=== PATIENT | female | born 1990 ===

== ENCOUNTER 2019-04-20 12:34 | Inpatient (IN) ==
[2019-04-20] MEDS ORDERED: MEPERIDINE 50 MG/1 ML VIAL IV PRN (12:55)
[2019-04-20] MEDS ORDERED: BUTORPHANOL 2 MG/ML VIAL IV PRN (12:55)
[2019-04-20] MEDS ORDERED: ONDANSETRON 4 MG/2 ML VIAL IV PRN (12:55)
[2019-04-20] MEDS ORDERED: DINOPROSTONE VAG GEL 10 MG SYRINGE VAG ONE (13:00)
[2019-04-20] MEDS ORDERED: LACTATED RINGERS 1,000 ML IV SCH (13:00)
[2019-04-20] MEDS ORDERED: OXYTOCIN/LR 20 UNIT/1,000 ML BAG IV SCH (13:00)
[2019-04-20 13:27] LABS: Basophils % 0.6 % (0.0-0.8); Eosinophils # 0.1 10*3/uL (0.0-0.87); Eosinophils % 0.7 % (0.00-10.9); Hematocrit 36.6 VOL% (35.7-47.0); Hemoglobin 11.6 GM/DL (12.0-16.0); Immature Granulocytes % 0.8 %; Immature Granulocytes Absolute 0.06 #; Lymphocytes # 1.9 10*3/uL (1.4-4.0); Lymphocytes % 26.4 % (21.3-54.2); Mean Corpuscular HGB Conc 31.7 GM/DL (32-36); Mean Corpuscular Volume 88.8 FL (87-102); Monocytes % 7.5 % (1.7-12.7); Platelet Count 219 T/CUMM (130-400); Red Blood Count 4.12 MC/CUMM (3.8-5.5); Red Cell Distribution Width 14.5 % (9.3-17.3); White Blood Count 7.2 T/CUMM (4-12)
[2019-04-20 14:03] LABS: Alanine Aminotransferase 11 U/L (13-56); Albumin 2.3 G/DL (3.4-5.0); Alkaline Phosphatase 282 U/L (45-117); Aspartate Amino Transferase 16 U/L (0-37); Bilirubin,Total < 0.39 MG/DL (0.2-1.0); Blood Urea Nitrogen 8 MG/DL (7-18); Calcium 8.6 MG/DL (8.5-10.1); Estimated Glom Filtration Rate 132 ML/MIN; Glucose 78 MG/DL (74-106); Osmolality,Calculated 273.5 MOS/KG (273-304); Total Protein 6.2 G/DL (6.4-8.3)
[2019-04-20 15:55] LABS: Barbiturates Screen,Urine Negative (Negative); Benzodiazepines Screen,Urine Negative (Negative); Cannabinoid Screen,Urine Negative (Negative); Opiate Screen,Urine Negative (Negative); Phencyclidine Screen,Urine Negative (Negative)
[2019-04-21] MEDS ORDERED: OXYTOCIN/LR 20 UNIT/1,000 ML BAG IV SCH (05:00)
[2019-04-21] MEDS ORDERED: LACTATED RINGERS 1,000 ML IV ONE (08:27)
[2019-04-21] MEDS ORDERED: CITRIC ACID/SODIUM CITRATE 30 ML UDCUP PO ONE (08:27)
[2019-04-21] MEDS ORDERED: FAMOTIDINE 20 MG/2 ML VIAL IV ONE (08:27)
[2019-04-21] MEDS ORDERED: diphenhydrAMINE 50 MG/1 ML VIAL IV PRN ×2 (08:28)
[2019-04-21] MEDS ORDERED: LACTATED RINGERS 250 ML IV PRN (08:28)
[2019-04-21] MEDS ORDERED: hydrOXYzine HCL 25 MG/1 ML VIAL IM PRN (08:28)
[2019-04-21] MEDS ORDERED: NALOXONE 0.4 MG/ML VIAL IV PRN (08:28)
[2019-04-21] MEDS ORDERED: PROMETHAZINE 25 MG/1 ML VIAL IM ONE (08:28)
[2019-04-21] MEDS ORDERED: fentaNYL 2 MCG/ROPIV 0.2% EPID 100 ML EPIDURAL SCH (08:30)
[2019-04-21] MEDS ORDERED: ceFAZolin 2,000 MG in PREMIX 1 EACH IV ONE (15:00)
[2019-04-21 15:07] LABS: Apearance,Urine CLEAR (Clear); Bilirubin,Urine Negative (Negative); Blood, Urine Negative (Negative); Glucose,Urine (UA) Negative (Negative); Ketones,Urine 5 mg/dL (Negative); Mucus,Urine Occasional /LPF (Occasional); Nitrite,Urine Negative (Negative); Protein,Urine Negative; RBC,Urine <1 /HPF (0-4); Squamous Epithelial Cell,Urine Occasional /HPF (0-10); Urine Color Yellow (Yellow); Urine Specific Gravity 1.016 (1.001-1.035); Urine Urobilinogen < 2.0 EU/DL (0.2-1.0); WBC,Urine 4 /HPF (0-6)
[2019-04-21] MEDS ORDERED: TERBUTALINE 1 MG/1 ML VIAL SUBCUT PRN (15:17)
[2019-04-21] MEDS ORDERED: TERBUTALINE 1 MG/1 ML VIAL ONE (15:18)
[2019-04-21] MEDS ORDERED: OXYTOCIN 10 UNIT/ML VIAL ONE ×3 (15:24→15:29)
[2019-04-21] MEDS ORDERED: OXYTOCIN/LR 30 UNIT/1,000 ML BAG IV ONE (15:26)
[2019-04-21 16:16] LABS: Cord Arterial Blood HCO3 17.8 MMOL/L
[2019-04-21 16:19] LABS: Cord Venous Blood HCO3 19.3 MMOL/L; Cord Venous Blood PCO2 58.3 MMHG
[2019-04-21] MEDS ORDERED: LIDOCAINE MPF 2% /EPI 20 ML VIAL ONE (16:20)
[2019-04-21] MEDS ORDERED: MAGNESIUM HYDROXIDE SUSP 30 ML UDCUP PO PRN (16:23)
[2019-04-21] MEDS ORDERED: ONDANSETRON 4 MG/2 ML VIAL IV PRN (16:23)
[2019-04-21] MEDS ORDERED: OXYTOCIN/LR 20 UNIT/1,000 ML BAG IV ONE (16:23)
[2019-04-21] MEDS ORDERED: ACETAMINOPHEN 325 MG TABLET PO PRN (16:23)
[2019-04-21] MEDS ORDERED: RHO(D) IMMUNE GLOBULIN 300 MCG SYRINGE IM ONE (16:23)
[2019-04-21 16:24] LABS: Cord Venous Blood PO2 12.9
[2019-04-21] MEDS: ePHEDrine 50 MG/ML AMP IV PRN ×3 (16:43→17:09)
[2019-04-21] MEDS: LACTATED RINGERS 1,000 ML IV SCH (20:23)
[2019-04-21] MEDS: IBUPROFEN 800 MG TABLET PO PRN (20:29)
[2019-04-21] MEDS ORDERED: KETOROLAC 30 MG/1 ML VIAL IV PRN (22:21)
[2019-04-21] MEDS: DOCUSATE SODIUM 100 MG CAPSULE PO SCH (22:25)
[2019-04-21] MEDS: ONDANSETRON 4 MG/2 ML VIAL IV PRN (22:40)
[2019-04-21] MEDS: HYDROmorphone 2 MG/1 ML VIAL IV PRN (22:43)
[2019-04-22 01:06] LABS: Basophils % 0.3 % (0.0-0.8); Eosinophils % 0.1 % (0.00-10.9); Hematocrit 28.5 VOL% (35.7-47.0); Hemoglobin 9.3 GM/DL (12.0-16.0); Immature Granulocytes % 0.4 %; Immature Granulocytes Absolute 0.05 #; Lymphocytes # 1.5 10*3/uL (1.4-4.0); Lymphocytes % 12.7 % (21.3-54.2); Mean Corpuscular HGB Conc 32.6 GM/DL (32-36); Mean Corpuscular Volume 86.9 FL (87-102); Mean Platelet Volume 10.2 FL (9.6-12.0); Monocytes % 5.4 % (1.7-12.7); Neutrophils % 81.1 % (38.7-73.9); Platelet Count 163 T/CUMM (130-400); Red Blood Count 3.28 MC/CUMM (3.8-5.5); Red Cell Distribution Width 14.3 % (9.3-17.3); White Blood Count 11.6 T/CUMM (4-12)
[2019-04-22] MEDS: LACTATED RINGERS 1,000 ML IV SCH (04:09)
[2019-04-22] MEDS ORDERED: oxyCODONE/ACETAMINOPHEN 5-325 MG TABLET PO PRN (05:13)
[2019-04-22] MEDS: ONDANSETRON 4 MG/2 ML VIAL IV PRN (05:24)
[2019-04-22] MEDS: HYDROmorphone 2 MG/1 ML VIAL IV PRN (05:27)
[2019-04-22 08:49] LABS: Basophils % 0.3 % (0.0-0.8); Eosinophils % 0.4 % (0.00-10.9); Hematocrit 29.2 VOL% (35.7-47.0); Hemoglobin 9.4 GM/DL (12.0-16.0); Immature Granulocytes % 0.5 %; Immature Granulocytes Absolute 0.05 #; Lymphocytes # 1.7 10*3/uL (1.4-4.0); Lymphocytes % 17.9 % (21.3-54.2); Mean Corpuscular HGB Conc 32.2 GM/DL (32-36); Mean Corpuscular Volume 88.5 FL (87-102); Mean Platelet Volume 10.9 FL (9.6-12.0); Monocytes % 7.4 % (1.7-12.7); Neutrophils % 73.5 % (38.7-73.9); Platelet Count 168 T/CUMM (130-400); Red Cell Distribution Width 14.4 % (9.3-17.3); White Blood Count 9.6 T/CUMM (4-12)
[2019-04-22] MEDS: METOCLOPRAMIDE 10 MG TABLET PO SCH ×2 (09:06→17:33)
[2019-04-22] MEDS: MULTIVITAMIN (PRENATAL) TABLET PO SCH (09:06)
[2019-04-22] MEDS: SIMETHICONE CHEW 80 MG TABLET PO PRN ×2 (09:06→20:48)
[2019-04-22] MEDS: MAGNESIUM HYDROXIDE SUSP 30 ML UDCUP PO SCH ×2 (09:06→20:48)
[2019-04-22] MEDS: DOCUSATE SODIUM 100 MG CAPSULE PO SCH ×2 (09:07→20:48)
[2019-04-22] MEDS: IBUPROFEN 800 MG TABLET PO PRN ×2 (11:25→20:48)
[2019-04-22] MEDS: oxyCODONE/ACETAMINOPHEN 5-325 MG TABLET PO PRN ×2 (11:27→17:32)
[2019-04-23] MEDS: METOCLOPRAMIDE 10 MG TABLET PO SCH ×3 (00:10→16:33)
[2019-04-23] MEDS: oxyCODONE/ACETAMINOPHEN 5-325 MG TABLET PO PRN ×3 (03:45→16:29)
[2019-04-23] MEDS: SIMETHICONE CHEW 80 MG TABLET PO PRN (09:34)
[2019-04-23] MEDS: DOCUSATE SODIUM 100 MG CAPSULE PO SCH (09:34)
[2019-04-23] MEDS: MULTIVITAMIN (PRENATAL) TABLET PO SCH (09:34)
[2019-04-23] MEDS: MAGNESIUM HYDROXIDE SUSP 30 ML UDCUP PO SCH (09:34)
[2019-04-23] MEDS: IBUPROFEN 800 MG TABLET PO PRN (10:26)
[2019-04-23 11:30] VITALS: BP 132/81
== END 2019-04-23 17:30 | disposition home or self-care (01) | DRG 540 ==
LOC: N.LDOUT 12:34 → N.LD 12:38 → N.OB 04-21 21:57
PROVIDERS: ADMIT Obstetrics & Gynecology; ATTEND Obstetrics & Gynecology
PROC: LDCSECT (ICD-10-PCS; 2019-04-21 14:00)

== ENCOUNTER 2020-08-13 09:38 | Inpatient (IN) ==
[2020-08-13] MEDS ORDERED: ceFAZolin 3,000 MG in SYRINGE 1 EACH IV ONE (10:15)
[2020-08-13] MEDS ORDERED: CITRIC ACID/SODIUM CITRATE 30 ML UDCUP PO ONE ×2 (10:15→15:44)
[2020-08-13] MEDS ORDERED: FAMOTIDINE 20 MG/2 ML VIAL IV ONE ×2 (10:15→15:44)
[2020-08-13] MEDS ORDERED: OXYTOCIN 10 UNIT/ML VIAL IM ONE (10:17)
[2020-08-13] MEDS ORDERED: OXYTOCIN/LR 30 UNIT/1,000 ML BAG IV ONE (10:17)
[2020-08-13] MEDS: LACTATED RINGERS 1,000 ML IV SCH ×2 (10:34→14:13)
[2020-08-13 10:35] LABS: Basophils % 0.4 % (0.0-0.8); Eosinophils # 0.1 10*3/uL (0.0-0.87); Hematocrit 32.6 VOL% (35.7-47.0); Hemoglobin 10.1 GM/DL (12.0-16.0); Immature Granulocytes % 1.4 %; Lymphocytes # 1.4 10*3/uL (1.4-4.0); Lymphocytes % 18.8 % (21.3-54.2); Mean Corpuscular Volume 84.5 FL (87-102); Monocytes % 7.6 % (1.7-12.7); Neutrophils % 70.8 % (38.7-73.9); Platelet Count 176 T/CUMM (130-400); Red Blood Count 3.86 MC/CUMM (3.8-5.5); Red Cell Distribution Width 16.2 % (9.3-17.3); White Blood Count 7.4 T/CUMM (4-12)
[2020-08-13 10:52] LABS: Alanine Aminotransferase 9 U/L (13-56); Albumin 2.1 G/DL (3.4-5.0); Alkaline Phosphatase 212 U/L (45-117); Aspartate Amino Transferase 13 U/L (0-37); Bilirubin,Total < 0.39 MG/DL (0.2-1.0); Blood Urea Nitrogen 7 MG/DL (7-18); Carbon Dioxide 24 MMOL/L (21-32); Estimated Glom Filtration Rate 154 ML/MIN; Glucose 71 MG/DL (74-106); Osmolality,Calculated 274.4 MOS/KG (273-304); Potassium 3.9 MMOL/L (3.5-5.1); Sodium 140 MMOL/L (136-145); Total Protein 5.9 G/DL (6.4-8.2)
[2020-08-13] MEDS ORDERED: BUPIVACAINE SPINAL 0.75% 2 ML AMP SPINAL ONE (13:10)
[2020-08-13] MEDS ORDERED: MORPHINE 10 MG/10 ML VIAL ONE (13:10)
[2020-08-13] MEDS ORDERED: METOCLOPRAMIDE 10 MG/2 ML VIAL ONE (13:10)
[2020-08-13] MEDS ORDERED: ONDANSETRON 4 MG/2 ML VIAL ONE (13:10)
[2020-08-13] MEDS ORDERED: CARBOPROST TROMETHAMINE 250 MCG/ML AMP IM ONE (13:37)
[2020-08-13] MEDS ORDERED: TRANEXAMIC ACID 1,000 MG/10 ML VIAL ONE (13:37)
[2020-08-13] MEDS ORDERED: METHYLERGONOVINE 0.2 MG/1 ML AMP ONE (13:37)
[2020-08-13] MEDS ORDERED: OXYTOCIN/LR 20 UNIT/1,000 ML BAG IV ONE ×2 (13:37→17:00)
[2020-08-13] MEDS ORDERED: miSOPROStoL 200 MCG TABLET ONE (13:37)
[2020-08-13] MEDS ORDERED: SODIUM CHLORIDE 0.9% 0 ML IV ONE (13:38)
[2020-08-13] MEDS ORDERED: MIDAZOLAM 2 MG/2 ML VIAL ONE (14:24)
[2020-08-13] MEDS ORDERED: SODIUM CHLORIDE 0.9% 1,000 ML IV ONE (14:57)
[2020-08-13] MEDS ORDERED: DEXAMETHASONE 4 MG/1 ML VIAL ONE (15:26)
[2020-08-13 15:30] LABS: Cord Arterial Blood HCO3 19.3 MMOL/L
[2020-08-13 15:33] LABS: Cord Venous Blood HCO3 21.3 MMOL/L; Cord Venous Blood PCO2 47.2 MMHG; Cord Venous Blood PO2 24.5
[2020-08-13] MEDS ORDERED: BUPIVACAINE MPF 0.5% /EPI 30 ML VIAL ONE (15:39)
[2020-08-13] MEDS ORDERED: NALOXONE 0.4 MG/ML VIAL IV PRN (15:44)
[2020-08-13] MEDS ORDERED: diphenhydrAMINE 50 MG/1 ML VIAL IV PRN ×2 (15:44)
[2020-08-13] MEDS ORDERED: LACTATED RINGERS 1,000 ML IV ONE (15:44)
[2020-08-13] MEDS ORDERED: fentaNYL 2 MCG/ROPIV 0.2% EPID 100 ML EPIDURAL SCH (16:00)
[2020-08-13 16:52] LABS: Bacteria,Urine Occasional /HPF (Few); Bilirubin,Urine Negative (Negative); Blood, Urine Small mg/dL (Negative); Glucose,Urine (UA) Negative (Negative); Ketones,Urine Negative (Negative); Mucus,Urine Occasional /LPF (Occasional); Nitrite,Urine Negative (Negative); Protein,Urine 30 MG/DL; RBC,Urine 11 /HPF (0-4); Squamous Epithelial Cell,Urine Occasional /HPF (0-10); Urine Appearance CLEAR (Clear); Urine Color Yellow (Yellow); Urine Specific Gravity 1.027 (1.001-1.035); Urine Urobilinogen < 2.0 EU/DL (0.2-1.0); WBC,Urine 3 /HPF (0-6)
[2020-08-13] MEDS ORDERED: ONDANSETRON 4 MG/2 ML VIAL IV PRN (16:56)
[2020-08-13] MEDS ORDERED: SIMETHICONE CHEW 80 MG TABLET PO PRN (16:56)
[2020-08-13] MEDS ORDERED: ACETAMINOPHEN 325 MG TABLET PO PRN (16:56)
[2020-08-13 17:03] LABS: Barbiturates Screen,Urine Negative (Negative); Benzodiazepines Screen,Urine Positive (Negative); Cannabinoid Screen,Urine Negative (Negative); Opiate Screen,Urine Positive (Negative); Phencyclidine Screen,Urine Negative (Negative)
[2020-08-13] MEDS ORDERED: LACTATED RINGERS 1,000 ML IV SCH (18:00)
[2020-08-13] MEDS ORDERED: RHO(D) IMMUNE GLOBULIN 300 MCG SYRINGE IM ONE (18:00)
[2020-08-13] MEDS ORDERED: ceFAZolin 1,000 MG in SYRINGE 1 EACH IV SCH (18:00)
[2020-08-13 22:25] LABS: Basophils % 0.2 % (0.0-0.8); Hematocrit 30.2 VOL% (35.7-47.0); Hemoglobin 9.7 GM/DL (12.0-16.0); Immature Granulocytes % 0.8 %; Immature Granulocytes Absolute 0.09 #; Lymphocytes # 0.7 10*3/uL (1.4-4.0); Lymphocytes % 5.7 % (21.3-54.2); Mean Corpuscular HGB Conc 32.1 GM/DL (32-36); Mean Corpuscular Volume 82.1 FL (87-102); Mean Platelet Volume 10.9 FL (9.6-12.0); Monocytes % 3.4 % (1.7-12.7); Neutrophils % 89.9 % (38.7-73.9); Platelet Count 165 T/CUMM (130-400); Red Blood Count 3.68 MC/CUMM (3.8-5.5); Red Cell Distribution Width 15.8 % (9.3-17.3)
[2020-08-13] MEDS: ceFAZolin 2,000 MG in PREMIX 1 EACH IV SCH (22:28)
[2020-08-13] MEDS: DOCUSATE SODIUM 100 MG CAPSULE PO SCH (22:29)
[2020-08-13] MEDS: FERROUS SULFATE 325 MG TABLET PO SCH (22:29)
[2020-08-14] MEDS ORDERED: TISSUE ADHESIVE 1 EACH APPLICATOR TOP ONE (05:03)
[2020-08-14] MEDS: ceFAZolin 2,000 MG in PREMIX 1 EACH IV SCH (06:05)
[2020-08-14 06:21] LABS: Basophils % 0.3 % (0.0-0.8); Eosinophils % 0.1 % (0.00-10.9); Hematocrit 29.8 VOL% (35.7-47.0); Hemoglobin 9.3 GM/DL (12.0-16.0); Immature Granulocytes % 0.9 %; Lymphocytes # 1.4 10*3/uL (1.4-4.0); Lymphocytes % 11.6 % (21.3-54.2); Mean Corpuscular HGB Conc 31.2 GM/DL (32-36); Mean Corpuscular Volume 84.2 FL (87-102); Mean Platelet Volume 11.5 FL (9.6-12.0); Monocytes % 7.5 % (1.7-12.7); Neutrophils % 79.6 % (38.7-73.9); Platelet Count 190 T/CUMM (130-400); Red Blood Count 3.54 MC/CUMM (3.8-5.5); Red Cell Distribution Width 15.7 % (9.3-17.3); White Blood Count 11.7 T/CUMM (4-12)
[2020-08-14] MEDS: MAGNESIUM HYDROXIDE SUSP 30 ML UDCUP PO PRN ×2 (09:28→20:21)
[2020-08-14] MEDS: DOCUSATE SODIUM 100 MG CAPSULE PO SCH ×2 (09:28→20:21)
[2020-08-14] MEDS: MULTIVITAMIN (PRENATAL) TABLET PO SCH (09:28)
[2020-08-14] MEDS: IBUPROFEN 800 MG TABLET PO PRN ×2 (09:28→20:21)
[2020-08-14] MEDS: FERROUS SULFATE 325 MG TABLET PO SCH ×2 (09:31→20:21)
[2020-08-15] MEDS: IBUPROFEN 800 MG TABLET PO PRN (03:12)
[2020-08-15 07:20] VITALS: BP 130/71
[2020-08-15] MEDS: DOCUSATE SODIUM 100 MG CAPSULE PO SCH ×2 (07:50→10:14)
[2020-08-15] MEDS: FERROUS SULFATE 325 MG TABLET PO SCH ×2 (07:50→10:14)
[2020-08-15] MEDS: MULTIVITAMIN (PRENATAL) TABLET PO SCH ×2 (07:51→10:14)
== END 2020-08-15 12:00 | disposition home or self-care (01) | DRG 540 ==
LOC: N.LD 09:38 → N.OB 18:08
PROVIDERS: ADMIT Obstetrics & Gynecology; ATTEND Obstetrics & Gynecology
PROC: LDCSECT (ICD-10-PCS; 2020-08-13 14:30)

== ENCOUNTER 2021-12-28 23:36 | Inpatient (IN) ==
[2021-12-29 00:27] LABS: Mucus,Urine Occasional /LPF (Occasional); RBC,Urine 6 /HPF (0-4); Squamous Epithelial Cell,Urine Occasional /HPF (0-10)
[2021-12-29 00:28] LABS: Bilirubin,Urine Negative (Negative); Blood, Urine Trace mg/dL (Negative); Glucose,Urine (UA) Negative (Negative); Ketones,Urine Negative (Negative); Nitrite,Urine Negative (Negative); Protein,Urine Trace mg/dL (Negative); Urine Appearance Clear (Clear); Urine Color Yellow (Yellow); Urine pH 6.5 (4.5-8.0)
[2021-12-29 00:38] LABS: Barbiturates Screen,Urine Negative (Negative); Benzodiazepines Screen,Urine Negative (Negative); Cannabinoid Screen,Urine Negative (Negative); Opiate Screen,Urine Negative (Negative); Phencyclidine Screen,Urine Negative (Negative)
[2021-12-29] MEDS ORDERED: LACTATED RINGERS 1,000 ML IV ONE (00:45)
[2021-12-29 00:49] LABS: Basophils % 0.3 % (0.0-0.8); Eosinophils # 0.1 10*3/uL (0.0-0.87); Eosinophils % 1.6 % (0.00-10.9); Hematocrit 29.7 VOL% (35.7-47.0); Immature Granulocytes % 0.8 %; Immature Granulocytes Absolute 0.05 #; Lymphocytes # 1.5 10*3/uL (1.4-4.0); Lymphocytes % 22.7 % (21.3-54.2); Mean Corpuscular HGB Conc 30.3 GM/DL (32-36); Mean Corpuscular Volume 78.6 FL (87-102); Mean Platelet Volume 10.2 FL (9.6-12.0); Monocytes # 0.4 10*3/uL (0.11-0.8); Monocytes % 6.3 % (1.7-12.7); Neutrophils % 68.3 % (38.7-73.9); Platelet Count 219 T/CUMM (130-400); Red Blood Count 3.78 MC/CUMM (3.8-5.5); Red Cell Distribution Width 16.3 % (9.3-17.3); White Blood Count 6.4 T/CUMM (4-12)
[2021-12-29 02:28] LABS: HIV Antigen/Antibody Result Nonreactive (Nonreactive); Rubella Antibody IgG Result Non-Reactive (NonReactive)
[2021-12-29] MEDS: LACTATED RINGERS 1,000 ML IV SCH ×2 (02:48→14:48)
[2021-12-29 06:37] LABS: Hepatitis B Surface Ag Quant < 0.10 Index; Hepatitis B Surface Ag Result Non-Reactive (NonReactive)
[2021-12-29] MEDS ORDERED: OXYTOCIN/LR 20 UNIT/1,000 ML BAG IV ONE (08:13)
[2021-12-29] MEDS ORDERED: ceFAZolin 3,000 MG in SYRINGE 1 EACH IV ONE (08:13)
[2021-12-29] MEDS ORDERED: CITRIC ACID/SODIUM CITRATE 30 ML UDCUP PO ONE (08:13)
[2021-12-29] MEDS ORDERED: TRANEXAMIC ACID 1,000 MG in SODIUM CHLORIDE 0.9% 100 ML IV PRN (08:13)
[2021-12-29] MEDS ORDERED: METHYLERGONOVINE 0.2 MG/1 ML AMP IM PRN (08:13)
[2021-12-29] MEDS ORDERED: CARBOPROST TROMETHAMINE 250 MCG/ML AMP IM PRN (08:13)
[2021-12-29] MEDS ORDERED: FAMOTIDINE 20 MG/2 ML VIAL IV ONE (08:13)
[2021-12-29] MEDS ORDERED: miSOPROStoL 200 MCG TABLET RECTAL PRN (08:13)
[2021-12-29] MEDS ORDERED: miSOPROStoL 200 MCG TABLET ONE (10:36)
[2021-12-29] MEDS ORDERED: METHYLERGONOVINE 0.2 MG/1 ML AMP ONE (10:36)
[2021-12-29] MEDS ORDERED: SODIUM CHLORIDE 0.9% 0 ML IV ONE (10:36)
[2021-12-29] MEDS ORDERED: OXYTOCIN/LR 0 UNIT/0 ML BAG IV ONE (10:36)
[2021-12-29] MEDS ORDERED: CARBOPROST TROMETHAMINE 250 MCG/ML AMP IM ONE (10:36)
[2021-12-29] MEDS ORDERED: TRANEXAMIC ACID 1,000 MG/10 ML VIAL ONE (10:36)
[2021-12-29] MEDS ORDERED: PHENYLEPHRINE 1 MG/10 ML SYRINGE IV ONE (17:20)
[2021-12-29] MEDS ORDERED: BUPIVACAINE SPINAL 0.75% 2 ML AMP SPINAL ONE (17:20)
[2021-12-29] MEDS ORDERED: ONDANSETRON 4 MG/2 ML VIAL ONE (17:20)
[2021-12-29] MEDS ORDERED: buprenorphine HCL 0.3 MG/ML VIAL ONE (17:21)
[2021-12-30] MEDS ORDERED: ceFAZolin 2,000 MG/50 ML DUPLEX IV PRN (02:18)
[2021-12-30] MEDS ORDERED: FAMOTIDINE 20 MG/2 ML VIAL IV PRN (02:18)
[2021-12-30] MEDS ORDERED: CITRIC ACID/SODIUM CITRATE 30 ML UDCUP PO PRN (02:18)
[2021-12-30] MEDS: LACTATED RINGERS 1,000 ML IV SCH (06:08)
[2021-12-30] MEDS ORDERED: METOCLOPRAMIDE 10 MG/2 ML VIAL ONE (06:51)
[2021-12-30] MEDS ORDERED: ONDANSETRON 4 MG/2 ML VIAL ONE (06:51)
[2021-12-30] MEDS ORDERED: buprenorphine HCL 0.3 MG/ML VIAL ONE (06:54)
[2021-12-30] MEDS ORDERED: MIDAZOLAM 2 MG/2 ML VIAL ONE (06:54)
[2021-12-30] MEDS ORDERED: SODIUM CHLORIDE 0.9% 0 ML IV ONE (07:06)
[2021-12-30] MEDS ORDERED: OXYTOCIN/LR 20 UNIT/1,000 ML BAG IV ONE ×2 (07:20→08:45)
[2021-12-30] MEDS ORDERED: PHENYLEPHRINE 1 MG/10 ML SYRINGE IV ONE (08:01)
[2021-12-30] MEDS ORDERED: LACTATED RINGERS 1,000 ML IV ONE (08:01)
[2021-12-30] MEDS ORDERED: BUPIVACAINE SPINAL 0.75% 2 ML AMP SPINAL ONE (08:05)
[2021-12-30 08:19] LABS: Cord Venous Blood HCO3 23.1 MMOL/L; Cord Venous Blood PCO2 51.1 MMHG; Cord Venous Blood PO2 31.5
[2021-12-30 08:27] LABS: Bacteria,Urine Occasional /HPF (Few); Mucus,Urine Occasional /LPF (Occasional); RBC,Urine 5 /HPF (0-4); Squamous Epithelial Cell,Urine Occasional /HPF (0-10)
[2021-12-30 08:30] LABS: Bilirubin,Urine Small mg/dL (Negative); Blood, Urine Negative (Negative); Glucose,Urine (UA) Negative (Negative); Ketones,Urine Negative (Negative); Nitrite,Urine Negative (Negative); Protein,Urine 100 mg/dL (Negative); Urine Appearance Clear (Clear); Urine Color Dark yellow (Yellow); Urine Specific Gravity 1.025 (1.001-1.035)
[2021-12-30] MEDS ORDERED: ACETAMINOPHEN 325 MG TABLET PO PRN (08:45)
[2021-12-30] MEDS ORDERED: ONDANSETRON 4 MG/2 ML VIAL IV PRN (08:45)
[2021-12-30] MEDS ORDERED: RHO(D) IMMUNE GLOBULIN 300 MCG SYRINGE IM ONE (08:45)
[2021-12-30] MEDS ORDERED: SIMETHICONE CHEW 80 MG TABLET PO PRN (08:45)
[2021-12-30] MEDS ORDERED: KETOROLAC 30 MG/1 ML VIAL ONE (08:52)
[2021-12-30] MEDS ORDERED: LACTATED RINGERS 1,000 ML IV SCH (09:00)
[2021-12-30 09:48] LABS: Alanine Aminotransferase 10 U/L (13-56); Albumin 1.5 G/DL (3.4-5.0); Alkaline Phosphatase 182 U/L (45-117); Aspartate Amino Transferase 11 U/L (0-37); Bilirubin,Total < 0.39 MG/DL (0.20-1.00); Blood Urea Nitrogen 7 MG/DL (7-18); Calcium 7.7 MG/DL (8.5-10.1); Carbon Dioxide 24 MMOL/L (21-32); Chloride 112 MMOL/L (98-107); Glucose 83 MG/DL (74-106); Osmolality,Calculated 275.4 MOS/KG (273-304); Potassium 4.2 MMOL/L (3.5-5.1); Sodium 140 MMOL/L (136-145)
[2021-12-30] MEDS: ACETAMINOPHEN 500 MG TABLET PO SCH ×2 (12:19→19:22)
[2021-12-30] MEDS: KETOROLAC 30 MG/1 ML VIAL IV SCH ×2 (15:37→20:40)
[2021-12-30] MEDS: DOCUSATE SODIUM 100 MG CAPSULE PO SCH (21:03)
[2021-12-30 21:19] LABS: Basophils % 0.3 % (0.0-0.8); Eosinophils # 0.1 10*3/uL (0.0-0.87); Eosinophils % 0.6 % (0.00-10.9); Hematocrit 20.9 VOL% (35.7-47.0); Immature Granulocytes % 0.7 %; Immature Granulocytes Absolute 0.08 #; Lymphocytes # 1.7 10*3/uL (1.4-4.0); Lymphocytes % 15.5 % (21.3-54.2); Mean Corpuscular HGB Conc 30.1 GM/DL (32-36); Mean Corpuscular Volume 78.9 FL (87-102); Mean Platelet Volume 11.1 FL (9.6-12.0); Monocytes # 0.6 10*3/uL (0.11-0.8); Monocytes % 5.7 % (1.7-12.7); Neutrophils % 77.2 % (38.7-73.9); Platelet Count 195 T/CUMM (130-400); Red Blood Count 2.65 MC/CUMM (3.8-5.5); Red Cell Distribution Width 16.4 % (9.3-17.3); White Blood Count 10.9 T/CUMM (4-12)
[2021-12-30 21:24] LABS: Hemoglobin 6.3 GM/DL (12.0-16.0)
[2021-12-30] MEDS ORDERED: SODIUM CHLORIDE 0.9% 1,000 ML IV PRN ×2 (21:37→21:41)
[2021-12-30] MEDS ORDERED: FUROSEMIDE 20 MG/2 ML VIAL IV ONE (22:00)
[2021-12-31] MEDS: oxyCODONE/ACETAMINOPHEN 5-325 MG TABLET PO PRN ×3 (02:05→18:20)
[2021-12-31] MEDS: ACETAMINOPHEN 500 MG TABLET PO SCH ×2 (02:09→17:40)
[2021-12-31] MEDS: KETOROLAC 30 MG/1 ML VIAL IV SCH (03:03)
[2021-12-31 09:16] LABS: Basophils % 0.2 % (0.0-0.8); Eosinophils # 0.1 10*3/uL (0.0-0.87); Eosinophils % 0.6 % (0.00-10.9); Hematocrit 24.7 VOL% (35.7-47.0); Immature Granulocytes % 0.9 %; Lymphocytes % 9.5 % (21.3-54.2); Mean Corpuscular HGB Conc 31.6 GM/DL (32-36); Mean Corpuscular Volume 79.9 FL (87-102); Mean Platelet Volume 10.7 FL (9.6-12.0); Monocytes # 0.7 10*3/uL (0.11-0.8); Monocytes % 6.5 % (1.7-12.7); NRBC # 0.02 10*3/uL; Neutrophils % 82.3 % (38.7-73.9); Platelet Count 196 T/CUMM (130-400); Red Blood Count 3.09 MC/CUMM (3.8-5.5); Red Cell Distribution Width 16.8 % (9.3-17.3); White Blood Count 10.8 T/CUMM (4-12)
[2021-12-31 09:22] LABS: Hemoglobin 7.8 GM/DL (12.0-16.0)
[2021-12-31] MEDS: MAGNESIUM HYDROXIDE SUSP 30 ML UDCUP PO PRN ×2 (09:22→21:29)
[2021-12-31] MEDS: MULTIVITAMIN (PRENATAL) TABLET PO SCH (09:22)
[2021-12-31] MEDS: DOCUSATE SODIUM 100 MG CAPSULE PO SCH ×2 (09:23→21:29)
[2021-12-31] MEDS: FERROUS SULFATE 325 MG TABLET PO SCH ×2 (11:47→18:19)
[2021-12-31] MEDS: IBUPROFEN 800 MG TABLET PO PRN (16:40)
[2021-12-31 17:57] LABS: Basophils % 0.2 % (0.0-0.8); Eosinophils % 0.3 % (0.00-10.9); Hemoglobin 7.7 GM/DL (12.0-16.0); Immature Granulocytes % 0.8 %; Lymphocytes # 1.2 10*3/uL (1.4-4.0); Lymphocytes % 9.8 % (21.3-54.2); Mean Corpuscular HGB Conc 30.8 GM/DL (32-36); Mean Corpuscular Volume 80.6 FL (87-102); Mean Platelet Volume 10.4 FL (9.6-12.0); Monocytes # 0.7 10*3/uL (0.11-0.8); NRBC # 0.02 10*3/uL; Neutrophils % 82.9 % (38.7-73.9); Platelet Count 220 T/CUMM (130-400); Red Cell Distribution Width 16.7 % (9.3-17.3); White Blood Count 11.8 T/CUMM (4-12)
[2022-01-01] MEDS: oxyCODONE/ACETAMINOPHEN 5-325 MG TABLET PO PRN ×2 (04:48→14:35)
[2022-01-01] MEDS: IBUPROFEN 800 MG TABLET PO PRN ×2 (04:48→14:34)
[2022-01-01] MEDS: DOCUSATE SODIUM 100 MG CAPSULE PO SCH ×3 (10:45→22:51)
[2022-01-01] MEDS: FERROUS SULFATE 325 MG TABLET PO SCH ×2 (10:45→22:51)
[2022-01-01] MEDS: MULTIVITAMIN (PRENATAL) TABLET PO SCH ×2 (10:45→12:05)
[2022-01-01 11:00] LABS: Hematocrit 24.5 VOL% (35.7-47.0); Hemoglobin 7.4 GM/DL (12.0-16.0)
[2022-01-01] MEDS ORDERED: HYDROmorphone 1 MG/1 ML SYRINGE IV PRN (11:31)
[2022-01-02] MEDS ORDERED: BISACODYL 10 MG SUPP RECTAL PRN (01:00)
[2022-01-02] MEDS: MULTIVITAMIN (PRENATAL) TABLET PO SCH (08:46)
[2022-01-02] MEDS: FERROUS SULFATE 325 MG TABLET PO SCH (08:47)
[2022-01-02] MEDS: IBUPROFEN 800 MG TABLET PO PRN ×2 (08:47)
[2022-01-02] MEDS: oxyCODONE/ACETAMINOPHEN 5-325 MG TABLET PO PRN ×2 (08:47)
[2022-01-02] MEDS: DOCUSATE SODIUM 100 MG CAPSULE PO SCH (08:47)
[2022-01-02 09:13] VITALS: BP 141/74
== END 2022-01-02 11:50 | disposition home or self-care (01) | DRG 540 ==
LOC: N.LDOUT 23:36 → N.LD 23:40 → N.OB 12-30 13:40
PROVIDERS: ADMIT Obstetrics & Gynecology; ATTEND Obstetrics & Gynecology
PROC: LDCSECT (ICD-10-PCS; 2021-12-30 06:00)